=== PATIENT | female | born 2000 | race Caucasian/White ===

== ENCOUNTER 2024-08-10 18:04 | Emergency (ER) | payer SELFPAY ==
[2024-08-10 18:06] VITALS: BP 150/103
--- NOTE | 2024-08-10 18:28 | ED.GENMED ---
History of Present Illness
General
Chief Complaint: Crisis Evaluation
Time Seen by Provider: 08/10/24 18:28
History of Present Illness
History of Present Illness:
TIME OF INITIAL ENCOUNTER: 6:30 PM
HPI: The patient presents with concerns for mental health, history of self-harm without any diagnosis, and wants help regarding cocaine and alcohol abuse. She states she has not used alcohol in the past 3 days or so. She does have some symptoms
consistent with alcohol withdrawal. Of note, she did report head fullness, nausea, tremor, sweating, no hallucinations.
EXAM:
GENERAL: Well appearing in no distress
HEENT: Moist oral mucosa
CARDIOVASCULAR: No murmurs, borderline tachycardic heart rate, regular rhythm, No chest wall tenderness
PULMONARY: No respiratory distress, breath sounds are clear and equal
ABDOMEN: Soft with no peritoneal signs, no tenderness
NEUROLOGIC: Excellent strength all extremities, no coordination deficits, tremor noted, borderline asterixis
PSYCHIATRIC: Appropriate mental status, normal insight and judgement
EXTREMITIES: Nontender, no edema, moves all extremities equally
SKIN: Tattoos noted
NUMBER AND COMPLEXITY OF PROBLEMS ADDRESSED AT THE ENCOUNTER
� Chronic conditions affecting care: No significant past medical history
� Acute Exacerbation and/or Progression of Chronic Illness: this is an acute problem
� Differential Diagnosis includes: Substance use, worsening mental health, self-harm, alcohol withdrawal
AMOUNT AND/OR COMPLEXITY OF DATA TO BE REVIEWED AND ANALYZED
� I performed an independent evaluation of and my interpretation is:
EKG:
CT:
X-rays:
Laboratory Studies: UDS positive for cocaine and marijuana negative opiates, hCG negative, chemistries relatively unremarkable, alcohol undetected.
Other:
� Review of other/old records: The patient gave 02/26/2023 here at [facility]
� Clinical information was obtained by an independent historian: I spoke to roommate at bedside.
� Prescriptions/Medications Considered but not given:
� Further testing considered but not performed:
RISK OF COMPLICATIONS AND/OR MORBIDITY OR MORTALITY OF PATIENT MANAGEMENT
� Social determinants of health affecting care: Substance abuse
� Discussion with other providers: Crisis evaluated patient upon arrival and felt more appropriate for [facility] involvement. I also have asked [facility] to evaluate the patient as of 6:35 PM.
� Escalation of care including admission/observation vs risk of discharge considered: As patient does have an elevated CIWA score, will check labs and reassess. Will give low-dose Ativan as well. She did present hypertensive
and tachycardic.
ANY OTHER UPDATES:
[facility] At 8:15 PM, I reassessed patient. Patient currently being seen by [facility]�trying to get her placed at [facility]. At around 10 PM, the patient was discharged to proceed directly to [facility] for further
evaluation and management.
Past History
Social History
Tobacco: Non-smoker
Alcohol: None
Drug: None
Phy Exam
Physical Exam
Physical Exam:
See HPI
Course
Orders/Labs/Results
Orders:
Orders
08/10/24 18:13
Test Result ONCE
08/10/24 18:14
Crisis Consult Urgent
Reason for Consult: depression
08/10/24 18:17
Fentanyl, Urine Urgent
HCG, Urine Qualitative Screen Urgent
Date Specimen was Collected: 08/10/24
Time Specimen was Collected: 18:13
Urine Drug Abuse Screen Urgent
Date Specimen was Collected: 08/10/24
Time Specimen was Collected: 18:13
08/10/24 18:33
Lorazepam [Ativan] 1 mg IV NOW STA
08/10/24 19:33
Alcohol Urgent
Complete Blood Count/With Diff Urgent
Comprehensive Metabolic Panel Urgent
Abnormal Lab Results
08/10/24 08/10/24
18:17 19:33
WBC 12.4 H 10^3/uL
(4.8-10.8)
Hct 36.7 L %
(37.0-47.0)
RDW 14.6 H %
(11.5-14.5)
MPV 10.5 H fL
(7.4-10.4)
Abs Immat Gran (auto) 0.1 H 10^3/uL
(0-0.05)
Absolute Neuts (auto) 8.4 H 10^3/uL
(1.4-6.5)
Absolute Monos (auto) 0.7 H 10^3/uL
(0.1-0.6)
Creatinine 1.2 H mg/dL
(0.6-1.0)
Urine Cocaine Screen Positive H
(Negative)
U Marijuana (THC) Screen Positive H
(Negative)
08/10/24 19:33
08/10/24 19:33
Vital Signs
Initial and Last Documented VS:
Initial Vital Signs
Temp Pulse Resp BP
37.0 C 102 16 150/103
08/10/24 18:06 08/10/24 18:06 08/10/24 18:06 08/10/24 18:06
Last Documented Vital Signs
Temp Pulse Resp BP Pulse Ox
36.7 C 98 16 150/93 98
08/10/24 20:55 08/10/24 20:55 08/10/24 20:55 08/10/24 20:55 08/10/24 20:55
*Critical Care Note
Total Time (30-74mins, 75-104mins- exclusive of procedures): Not Applicable
ED Attending Note
-
Portions of this chart may have been created with voice recognition software.� Occasional wrong word or��sound alike� substitutions may have occurred due to the inherent limitations of voice recognition software.
Discharge Plan
Departure
Patient Disposition: Acute Rehab Facility
Date of Disposition: 08/10/24
Time of Disposition: 20:42
Patient with high blood pressure during this ER visit?: Yes
Discharge Problem:
Substance use disorder
Prescriptions:
No Action
prenat.vits,neto,ied-rejb-qzirw Tablet
1 tab DAILY
ferrous sulfate [Iron (ferrous sulfate)] 325 mg (65 mg iron) Tablet
325 mg PO DAILY
valacyclovir [Valtrex] 500 mg Tablet
500 mg PO BID
sennosides-docusate sodium [Stool Softener-Stimulant Laxat] 8.6-50 mg Tablet
1 tab PO DAILYPRN PRN (Reason: constipation) Qty: 0 0RF
oxycodone-acetaminophen 5-325 mg Tablet
1 tab PO Q4HPRN PRN (Reason: moderate pain) 2 Days Qty: 10 0RF
ferrous sulfate [FeroSul] 325 mg (65 mg iron) Tablet
325 mg PO BID Qty: 0 0RF
ibuprofen 600 mg Tablet
600 mg PO Q6HPRN PRN (Reason: cramps) Qty: 0 0RF
simethicone 80 mg Tablet,Chewable
80 mg PO TIDPRN PRN (Reason: flatulence) Qty: 0 0RF
Referrals:
NONE,* [Family Provider, Internal Medicine]
Activity Restrictions/Additional Instructions:
Proceed to [facility] as recommended by [facility] at this time. Return here if worse or other concerns.
Interventions
Interventions:
*Risk Screen - Suicide Last Done: 08/10/24 18:06
*General Assessment Last Done: 08/10/24 18:06
*Neglect/Abuse Screening Last Done: 08/10/24 18:06
*ED- Fall Risk Assessment Last Done: 08/10/24 21:57
*ED COVID-19 Vaccine History Last Done: 08/10/24 18:06
*Nursing Disposition Last Done: 08/10/24 21:57
ED-Psychological Assessment Last Done: 08/10/24 20:45
Discharge Date and Time
Discharge Date/Time: 08/10/24 21:58
Print Language: IRISH
[2024-08-10 18:35] LABS: HCG, Urine Qualitative Screen Negative
[2024-08-10 18:54] LABS: Amphetamines Negative (Negative); Barbiturates Negative (Negative); Benzodiazepines Negative (Negative); Buprenorphine Negative (Negative); Cocaine Positive (Negative); Marijuana Positive (Negative); Methadone Negative (Negative); Methamphetamines Negative (Negative); Opiates Negative (Negative); Phencyclidine Negative (Negative); Tricyclic Antidepressants Negative (Negative)
[2024-08-10 19:12] LABS: Fentanyl, Urine Negative (Negative)
[2024-08-10] MEDS: ATIVAN 1 MG IV (19:32)
[2024-08-10 19:39] LABS: % Basophils 0.2 % (0-2); % Eosinophils 0.6 % (0-6); % Immature Granulocytes 0.4 % (0-0.5); % Lymphocytes 24.7 % (20.5-51.1); % Neutrophils 68.1 % (42.2-75.2); Absolute Eosinophils 0.1 10^3/uL (0-0.7); Absolute Immature Granulocytes 0.1 10^3/uL (0-0.05); Absolute Lymphocytes 3.1 10^3/uL (1.2-3.4); Absolute Monocytes 0.7 10^3/uL (0.1-0.6); Absolute Neutrophils 8.4 10^3/uL (1.4-6.5); Hematocrit 36.7 % (37.0-47.0); Hemoglobin 12.5 g/dL (12.0-16.0); Mean Corp Hgb Conc. 34.1 g/dL (33.0-37.0); Mean Corpuscular Hgb 28.1 pg (27.0-31.0); Mean Corpuscular Volume 82.5 fL (81.0-99.0); Mean Platelet Volume 10.5 fL (7.4-10.4); Nucleated Red Blood Cells % 0 %; Platelet Count 218 10^3/uL (130-400); Red Blood Cell Count 4.45 10^6/uL (4.20-5.40); Red Cell Dist. Width 14.6 % (11.5-14.5); White Blood Cell Count 12.4 10^3/uL (4.8-10.8)
[2024-08-10 19:53] LABS: ALT (SGPT) 24 U/L (0-35); AST (SGOT) 30 U/L (14-36); Albumin 4.4 g/dl (3.5-5.0); Alkaline Phosphatase 63 U/L (38-126); Blood Urea Nitrogen 17 mg/dl (7-17); Calcium 9.7 mg/dl (8.4-10.2); Carbon Dioxide 27 mmol/L (22-30); Chloride 106 mmol/L (98-107); Glucose 80 mg/dl (70-99); Sodium 139 mmol/L (135-145); Total Bilirubin 0.3 mg/dl (0.2-1.3); Total Protein 7.2 g/dl (6.3-8.2); eGFR > 60.00
[2024-08-10 19:57] LABS: Alcohol None Detected
--- NOTE | 2024-08-10 20:15 | EDRN ---
Per ED attending, pt. does not require 1:1 sitter.
[2024-08-10 20:55] VITALS: BP 150/93
== END 2024-08-10 21:58 ==
LOC: EMR 18:04
PROVIDERS: Emergency Medicine; EMERGENCY PHYSICIAN Emergency Medicine
DX: F19.90 Other psychoactive substance use, unspecified, uncomplicated (principal); F32.A Depression, unspecified; R03.0 Elevated blood-pressure reading, without diagnosis of hypertension
CPT/HCPCS: 99285; 96374; 80053; 80306; 80307; 81025; 82077; 85025